=== PATIENT | female | born 1975 | race Two or more races ===

== ENCOUNTER 2024-12-20 20:34 | Emergency (ER) | payer MEDICAID, OTHER ==
[~2024-12-20] VITALS: Ht 154.9 cm; Wt 73.3 kg
[2024-12-20] MEDS: SODIUM CHLORIDE 0.9% 2,000 ML IV ONE (21:00)
[2024-12-20 21:03] LABS: Urine Bacteria None Seen /hpf (None Seen)
[2024-12-20 21:10] LABS: Urine Blood 2+ /uL (Negative); Urine Clarity Turbid (Clear); Urine Color Yellow (Yellow); Urine Mucus FEW (None Seen); Urine Protein, UAD TRACE (Negative); Urine Specific Gravity 1.027 (1.001-1.035); Urine Squamous Epithelial Cell MOD /hpf (<5); Urine Urobilinogen Normal (Negative); Urine WBC 2 /HPF (0-5)
--- NOTE | 2024-12-20 21:30 | DVH ---
Exam: CT CT AB PEL WO CON-NO ORAL OR IV History: upper abd pain, n/v/d Comparison Study: None Technique: Multidetector spiral CT of the abdomen was performed from lung bases to pubic symphysis. Imaging was performed without IV contrast. Axial, coronal and sagittal multiplanar reformats were ob tained from the axial data set by the technologist. Radiation Dose : 1. Abdomen/Pelvis: CTDIvol 7.6 mGy, DLP 443 mGy*cm. Findings: Evaluation of solid organs is limited due to lack of intravenous contrast use. Lung Bases: No acute or significant lung base finding. Normal heart size. No pleural or pericardial effusion. Liver: The liver is normal in size. No focal lesions. Gallbladder and Biliary Tree: Unremarkable Spleen: Unremarkable Pancreas: The pancreas is grossly normal in appearance. Adrenal Glands: Unremarkable Kidneys: Kidneys are grossly normal without calculi or hydronephrosis. Bladder: Grossly unremarkable for degree of distention. Bowel: The stomach is grossly normal in appearance. Concentric wall thickening is seen in a few loops of small bowel in the lower abdomen which may reflect mild enteritis. Normal appendix is visualize d in the right lower quadrant without findings of appendicitis. Ascites: Absent Lymphadenopathy: No mesenteric, retroperitoneal or periportal lymphadenopathy. Abdominal Wall and Mesentery: Unremarkable. Vasculature: The visualized abdominal aorta is normal in size and caliber. Evaluation of abdominal a nd pelvic vessels is limited due to lack of intravenous contrast. Pelvic Organs: Unremarkable Musculoskeletal: No aggressive focal bony lesions, acute fractures or dislocation. IMPRESSION: 1. Concentric wall thickening is seen in a few loops of small bowel in the lower abdomen which may re flect mild enteritis. Radiation optimization: All CT scans at this facility use at least one of these dose optimization lorena hniques: automated exposure control mA and/or kV adjustment per patient size (includes targeted exam s where dose is matched to clinical indication) or iterative reconstruction.
[2024-12-20 21:37] LABS: Basophils # (auto) 0 10 ^3/uL (0-0.2); Basophils % (auto) 0.1 % (0.0-2.0); Eosinophils # (auto) 0 10 ^3/uL (0-0.8); Eosinophils % (auto) 0.2 % (0.0-7.0); Hematocrit 44.1 % (36.0-46.0); Hemoglobin 15.4 g/dL (12.2-16.2); Lymphocytes # (auto) 0.6 10 ^3/uL (0.4-5.4); Lymphocytes % (auto) 3.6 % (10.0-50.0); Mean Corpuscular Hemoglobin 29.5 pg (28.0-32.0); Mean Corpuscular Hgb Conc. 34.8 g/dL (32.0-36.0); Mean Corpuscular Volume 84.8 fL (80.0-100.0); Monocytes # (auto) 0.4 10 ^3/uL (0-1.3); Monocytes % (auto) 2.3 % (0.0-12.0); Neutrophils # (auto) 16.5 10 ^3/uL (1.6-8.6); Neutrophils % (auto) 93.8 % (37.0-80.0); Platelet Count (auto) 301 10^3/uL (140-450); Red Cell Distribution Width 13.3 % (11.8-14.3); White Blood Cell 17.6 10^3/uL (4.4-10.8)
[2024-12-20 21:46] VITALS: TEMP 98.4; O2SAT 96
[2024-12-20 21:52] LABS: Albumin 4.5 g/dL (3.2-4.8); Alkaline Phosphatase 73 U/L (46-116); Anion Gap 14 (5-15); Aspartate Aminotransferase 25 U/L (13-40); BUN/Creatinine Ratio 23.9 (10.0-20.0); Bilirubin, Total 0.7 mg/dL (0.2-1.0); Blood Urea Nitrogen 17 mg/dL (9-23); Calcium 9.1 mg/dL (8.7-10.4); Carbon Dioxide 22 mmol/L (20-31); Chloride 102 mmol/L (98-107); Lipase 35 U/L (12-53); Sodium 138 mmol/L (136-145); Total Protein 7.4 g/dL (5.7-8.2)
[2024-12-20 21:57] LABS: Alanine Aminotransferase 44 U/L (7-40); Glucose 128 mg/dL (74-106)
[2024-12-20] MEDS: PANTOPRAZOLE 40 MG/10 ML VIAL INJ IV ONE (22:02)
[2024-12-20] MEDS: ONDANSETRON HCL 4 MG/2 ML VIAL IV ONE (22:02)
[2024-12-20] MEDS: MORPHINE SULFATE 4 MG/ML SYR/VIAL IV ONE (22:05)
--- NOTE | 2024-12-20 22:10 | ED.PDOC ---
History of Present Illness HPI Comments 49 y/o F presents with friend for 1 day history of nonradiating, epigastric abdominal pain, with associated nausea, vomiting, diarrhea, subjective fever, headache, and nonproductive cough. Patient is a Thai speaker and required translation assistance by friend. She endorses on having symptoms nonstop all day, today. Reports no food or liquid tolerance and pain worsening after vomiting. No relief with Ibuprofen. Patient denies any recent sick contact, history of symptoms in the past, or significant past medical or surgical history. She denies having any dysuria, bloody or bilious vomitus, chills, or further associated symptoms. Chief Complaint: Abdominal Pain Time Seen by MD: 20:50 Reviewed Notes: Nurses Notes, Medications, Allergies Allergies: Coded Allergies: NO KNOWN ALLERGIES (Unverified , 12/20/24) Information Source: Patient Mode of Arrival: Ambulatory Severity: Moderate Timing: Hours Duration: Since onset Prehospital treatment: None Past Medical History PAST MEDICAL HISTORY: Denies Surgical History: Denies all surgeries [employer]PER[employer]OR History: No Pertinent [employer]PER[employer]OR History Family History Family History: Reviewed,noncontributory to illness Social History Smoker: Non-Smoker Alcohol: Denies ETOH Use Drugs: Denies Drug Use Lives In: Home All Other Systems: Reviewed and Negative (Comprehensive systems review obtained and negative except for what is stated in the HPI.) Physical Exam General Appearance: Moderate Distress, Obese HEENT: Other (Pupils and face symmetric. Dry mucous membranes.) Neck: Full Range of Motion, Non-Tender, Normal Inspection, Supple Respiratory: Lungs Clear, No Accessory Muscle Use, No Respiratory Distress, Normal Breath Sounds Cardiovascular: No Edema, No JVD, Tachycardia Breast Exam: Deferred Gastrointestinal: Epigastric, Soft, Tenderness Genitalia: Deferred Pelvic: Deferred Rectal: Deferred Extremities: Normal inspection, Normal range of motion, Non-tender, No pedal edema Neurologic: Alert (Oriented x4), Normal Affect, Normal Mood, Other (Ambulatory) Cerebellar Function: NOT DONE Reflexes: NOT DONE Skin: Dry, Normal Color, Warm Lymphatic: NOT DONE Was a procedure done? Was a procedure done?: No Differential Dx Considerations may include: gastritis, gastroenteritis, PUD, GERD, ulcer disease, pancreatitis, colitis, diverticular disease, electrolyte imbalance, hypovolemia, among others X-Ray, Labs, Meds, VS Vital Signs Date Time Temp Pulse Resp B/P (MAP) Pulse Ox O2 Delivery O2 Flow Rate FiO2 12/20/24 22:05 107 18 130/84 12/20/24 21:46 115 20 96 Room Air 12/20/24 21:46 98.4 115 20 109/71 (84) 96 98.4 12/20/24 20:51 99.6 120 16 127/90 (102) 96 99.6 Lab Test 12/20/24 21:23 12/20/24 20:55 Range/Units White Blood Count 17.6 H 4.4-10.8 10^3/uL Red Blood Count 5.20 4.0-5.20 10^6/uL Hemoglobin 15.4 12.2-16.2 g/dL Hematocrit 44.1 36.0-46.0 % Mean Corpuscular Volume 84.8 80.0-100.0 fL Mean Corpuscular Hemoglobin 29.5 28.0-32.0 pg Mean Corpuscular Hemoglobin Concent 34.8 32.0-36.0 g/dL Red Cell Distribution Width 13.3 11.8-14.3 % Platelet Count 301 140-450 10^3/uL Mean Platelet Volume 7.6 6.9-10.8 fL Neutrophils (%) (Auto) 93.8 H 37.0-80.0 % Lymphocytes (%) (Auto) 3.6 L 10.0-50.0 % Monocytes (%) (Auto) 2.3 0.0-12.0 % Eosinophils (%) (Auto) 0.2 0.0-7.0 % Basophils (%) (Auto) 0.1 0.0-2.0 % Neutrophils # (Auto) 16.5 H 1.6-8.6 10 ^3/uL Lymphocytes # (Auto) 0.6 0.4-5.4 10 ^3/uL Monocytes # (Auto) 0.4 0-1.3 10 ^3/uL Eosinophils # (Auto) 0 0-0.8 10 ^3/uL Basophils # (Auto) 0 0-0.2 10 ^3/uL Nucleated Red Blood Cells 0.0 % Sodium Level 138 136-145 mmol/L Potassium Level 3.0 L 3.5-5.1 mmol/L Chloride Level 102 98-107 mmol/L Carbon Dioxide Level 22 20-31 mmol/L Anion Gap 14 5-15 Blood Urea Nitrogen 17 9-23 mg/dL Creatinine 0.71 0.550-1.02 mg/dL Glomerular Filtration Rate Calc 105 >90 mL/min BUN/Creatinine Ratio 23.9 H 10.0-20.0 Serum Glucose 128 H 74-106 mg/dL Lactic Acid Level 2.0 0.4-2.0 mmol/L Calcium Level 9.1 8.7-10.4 mg/dL Total Bilirubin 0.7 0.2-1.0 mg/dL Aspartate Amino Transferase (AST) 25 13-40 U/L Alanine Aminotransferase (ALT) 44 H 7-40 U/L Alkaline Phosphatase 73 46-116 U/L Troponin I High Sensitivity < 3 L </=34 ng/L Total Protein 7.4 5.7-8.2 g/dL Albumin 4.5 3.2-4.8 g/dL Lipase 35 12-53 U/L Urine Color Yellow Yellow Urine Clarity Turbid H Clear Urine pH 6.0 5.0-9.0 Urine Specific Lamar 1.027 1.001-1.035 Urine Protein Trace H Negative Urine Ketones Negative Negative Urine Blood 2+ H Negative /uL Urine Nitrite Negative Negative Urine Bilirubin Negative Negative Urine Urobilinogen Normal Negative mg/dL Urine Leukocyte Esterase Trace Negative /uL Urine RBC 10 0 - 4 /hpf Urine Microscopic WBC 2 0-5 /HPF Urine Squamous Epithelial Cells Mod <5 /hpf Urine Bacteria None seen None Seen /hpf Urine Mucus Few None Seen Urine Glucose Normal Normal mg/dL Current Medications Medications (Trade) Dose Ordered Sig/Kimmy Route Start Time Stop Time Status Last Admin Sodium Chloride 2,000 ml @ 1,000 mls/hr Q2H ONCE IV 12/20/24 21:00 12/20/24 22:59 DC 12/20/24 21:00 Ondansetron HCl (Zofran) 4 mg ONCE ONCE IV 12/20/24 21:00 12/20/24 21:01 DC 12/20/24 22:02 Morphine Sulfate 4 mg ONCE ONCE IV 12/20/24 21:00 12/20/24 21:01 DC 12/20/24 22:05 Pantoprazole Sodium (Protonix) 40 mg ONCE ONCE IV 12/20/24 21:00 12/20/24 21:01 DC 12/20/24 22:[address] [address] Ph: [phone] DIAGNOSTIC IMAGING Diagnostic Imaging Report : [id number] Signed PATIENT: THAIS CARRIZALES ACCT: [id number] UNIT: [id number] : 1975 LOC: ER ROOM / BED: / AGE / SEX: 49 / F ADM STATUS: REG ER SERVICE 55 ORDERING PHYSICIAN: GRICEL MCDOWELL MD PROCEDURE(s): ABPL - CT AB PEL WO CON-NO ORAL OR IV REASON: upper abd pain, n/v/d ORDER NUMBER(s): [id number], ACCESSION NUMBER(s): [id number] Exam: CT CT AB PEL WO CON-NO ORAL OR IV History: upper abd pain, n/v/d Comparison Study: None Technique: Multidetector spiral CT of the abdomen was performed from lung bases to pubic symphysis. Imaging was performed without IV contrast. Axial, coronal and sagittal multiplanar reformats were obtained from the axial data set by the technologist. Radiation Dose : 1. Abdomen/Pelvis: CTDIvol 7.6 mGy, DLP 443 mGy*cm. Findings: Evaluation of solid organs is limited due to lack of intravenous contrast use. Lung Bases: No acute or significant lung base finding. Normal heart size. No pleural or pericardial effusion. Liver: The liver is normal in size. No focal lesions. Gallbladder and Biliary Tree: Unremarkable Spleen: Unremarkable Pancreas: The pancreas is grossly normal in appearance. Adrenal Glands: Unremarkable Kidneys: Kidneys are grossly normal without calculi or hydronephrosis. Bladder: Grossly unremarkable for degree of distention. Bowel: The stomach is grossly normal in appearance. Concentric wall thickening is seen in a few loops of small bowel in the lower abdomen which may reflect mild enteritis. Normal appendix is visualized in the right lower quadrant without findings of appendicitis. Ascites: Absent Lymphadenopathy: No mesenteric, retroperitoneal or periportal lymphadenopathy. Abdominal Wall and Mesentery: Unremarkable. Vasculature: The visualized abdominal aorta is normal in size and caliber. Evaluation of abdominal and pelvic vessels is limited due to lack of intravenous contrast. Pelvic Organs: Unremarkable Musculoskeletal: No aggressive focal bony lesions, acute fractures or dislocation. IMPRESSION: 1. Concentric wall thickening is seen in a few loops of small bowel in the lower abdomen which may reflect mild enteritis. Radiation optimization: All CT scans at this facility use at least one of these dose optimization techniques: automated exposure control mA and/or kV adjustment per patient size (includes targeted exams where dose is matched to clinical indication) or iterative reconstruction. ATED BY: LENNOX MCCORMICK MD DICTATED DATE/TIME: 12/20/242126 SIGNED BY: LENNOX MCCORMICK MD SIGNED DATE/TIME: 12/20/242126 CC: X-Ray, Labs, Meds, VS Comment 49-year-old female with no significant past medical history complaining of epigastric abdominal pain, nausea, vomiting and diarrhea Vitals remarkable for temperature 99.6, heart rate 120 Exam remarkable for tachycardia and epigastric tenderness to palpation Rhythm strip independently interpreted by me: Sinus tach, rate 120, no ectopy. CT abdomen and pelvis IMPRESSION: 1. Concentric wall thickening is seen in a few loops of small bowel in the lower abdomen which may reflect mild enteritis. CBC remarkable for WBC 17.6, CMP remarkable for potassium 3, lipase normal, lactate normal, troponin negative, UA abnormal but not consistent with UTI Patient treated with the following in the ED: 2 L 0.9 normal saline IV bolus, morphine 4 mg IV, Zofran 4 mg IV, Protonix 40 mg IV, effervescent potassium 50 mEq p.o. On re-evaluation, patient states her symptoms have improved and she would like to be discharged home. Repeat abdominal exam benign. Tolerating p.o. fluid. Afebrile and non tachycardic. Hospitalization was considered, however patient had rapid improvement of symptoms with treatment in the ED, and I no longer feel hospitalization is necessary. Patient now appears stable for discharge with close outpatient follow-up with primary physician. Rx Zofran, Levaquin, Flagyl, Bentyl, Tylenol, Imodium Time of 1ST Reevaluation: 21:20 Reevaluation 1ST: Unchanged Time of 2ND Reevaluation: 23:42 Reevaluation 2ND: Improved Patient Education/Counseling: Diagnosis, Treatment Family Education/Counseling: Diagnosis, Treatment Departure 1 Departure Time of Disposition: 23:42 Impression: Primary Impression: Enteritis Disposition: 01 HOME / SELF CARE / HOMELESS Condition: Stable Additional Instructions: Your blood tests showed you have an elevated white blood cell count and low potassium. We have corrected the potassium here in the ER. Your CT scan showed possible enteritis, which could be due to bacteria or viruses. I have prescribed antibiotics for a possible bacterial intestinal infection, as well as medication for nausea, pain and diarrhea. Follow-up with your primary doctor in 1-2 days. Return to ER for persistent or worsening symptoms. e-Prescriptions Loperamide Hcl (Imodium) 2 Mg Cp 2 MG PO Q6HP PRN, #20 CAP Prn diarrhea Prov: GRICEL MCDOWELL MD 12/20/24 Ondansetron Odt 4MG Tab (ZOFRAN PO) 4 Mg Tb 4 MG PO TID PRN, #30 TAB Prn nausea/vomiting ODT TAB-DISSOLVE IN MOUTH, THEN SWALLOW Prov: GRICEL MCDOWELL MD 12/20/24 Acetaminophen (Tylenol Extra Strength) 500 Mg Tab 1000 MG PO Q6HP PRN, #30 TAB Prn pain or fever Prov: GRICEL MCDOWELL MD 12/20/24 Dicyclomine Hcl (BENTYL CAPSULE) 10 Mg Cp 2 CAP PO Q6HP PRN, #30 CAP 11 Refills Prn abdominal pain Prov: GRICEL MCDOWELL MD 12/20/24 Metronidazole (Flagyl) 500 Mg Tab 1 TAB PO TID for 7 Days, #21 TAB Prov: GRICEL MCDOWELL MD 12/20/24 Levofloxacin Hemihydrate (LEVAQUIN 500 MG) 500 Mg Tab 1 TAB PO DAILY, #7 TAB Prov: GRICEL MCDOWELL MD 12/20/24 Discharged With: Relative Critical Care Note Critical Care Time?: No Stability Stability form required: No Heart Score Heart Score: Heart Score Response (Comments) Value History N/A 0 EKG N/A 0 Age N/A 0 Risk Factors N/A 0 Troponin N/A 0 Total 0 I personally scribed for GRICEL MCDOWELL MD ([email or web address]) on 12/20/24 at 22:09. Electronically submitted by Angel Sadler ([email or web address]). GRICEL MCDOWELL MD December 20, 2024 22:09
[2024-12-20] MEDS ORDERED: DICY10CA PO (23:49)
[2024-12-20] MEDS ORDERED: ZOFR4T PO (23:49)
[2024-12-20] MEDS ORDERED: METR-344 PO (23:49)
[2024-12-20] MEDS ORDERED: LOPE2CAP16 PO (23:49)
[2024-12-20] MEDS ORDERED: ACET-1304 PO (23:49)
[2024-12-20] MEDS ORDERED: LEVO500T91 PO (23:49)
[2024-12-20] MEDS: POTASSIUM EFFERVESENT TAB 25 MEQ PO ONE (23:56)
[2024-12-21 00:02] VITALS: BP 109/77; PULSE 98; RESP 18
== END 2024-12-21 00:03 | disposition home or self-care (01) ==
LOC: ER 20:34
DX: K52.9 Noninfective gastroenteritis and colitis, unspecified (principal); R11.2 Nausea with vomiting, unspecified
CPT/HCPCS: 36415; 74176; 80053; 81001; 83605; 83690; 84484; 85025; 96361; 96374; 96375; 99285; J2270; J2405; J2470; J7030